=== PATIENT | male | born 1995 | race Caucasian/White ===

== ENCOUNTER 2016-12-23 19:26 | Emergency (ER) | payer SELFPAY ==
[2016-12-23 20:34] VITALS: BP 140/69
--- NOTE | 2016-12-23 20:43 | ED ---
Throat Pain/Nasal Congestion - History of Current Complaint Chief Complaint: UCUpperExtremity - Allergies/Home Medications Allergies/Adverse Reactions: Allergies Allergy/AdvReac Type Severity Reaction Status Date / Time Amoxicillin [From Augmentin] AdvReac Mild Rash Verified 12/23/16 20:35 Clavulanic Acid AdvReac Mild Rash Verified 12/23/16 20:35 [From Augmentin] Home Medications: Home Medications Amphetamine-Dextroamphetamine [Adderall XR 30 mg-] 12/23/16 [History] Melatonin 12/23/16 [History Confirmed 12/23/16] traZODone TAB* [Desyrel TAB*] 12/23/16 [History] PMH/Surg Hx/FS Hx/Imm Hx Endocrine/Hematology History: Denies: Hx Diabetes, Hx Thyroid Disease Cardiovascular History: Denies: Hx Congestive Heart Failure, Hx Hypertension Respiratory History: Reports: Hx Asthma - POSSIBLY Denies: Hx Chronic Obstructive Pulmonary Disease (COPD) GI History: Denies: Hx Ulcer History: Denies: Hx Renal Disease Infectious Disease History: No Infectious Disease History: Denies: Hx Hepatitis, Hx Human Immunodeficiency Virus (HIV), Traveled Outside the [place] in Last 30 Days - Social History Alcohol Use: None Substance Use Type: Reports: None Smoking Status (MU): Never Smoked Tobacco Physical Exam Vital Signs On Initial Exam: Initial Vitals Temp Pulse Resp BP Pulse Ox 98.1 F 60 12 140/69 100 12/23/16 20:32 12/23/16 20:32 12/23/16 20:32 12/23/16 20:32 12/23/16 20:32 Diagnostics - Vital Signs Vital Signs Temp Pulse Resp BP Pulse Ox 12/23/16 20:32 98.1 F 60 12 140/69 100 - Laboratory Lab Statement: Any lab studies that have been ordered have been reviewed, and results considered in the medical decision making process.
--- NOTE | 2016-12-23 21:47 | RAD ---
Indication: Left fifth finger injury. 3 views of the left fifth digit demonstrates no fracture. No other bone or joint abnormality is noted. There is flexion deformity at the proximal interphalangeal joint. IMPRESSION: Flexion deformity proximal interphalangeal joint without evidence of fracture.
--- NOTE | 2016-12-23 22:03 | UC ---
Hand/Wrist HPI - HPI Summary HPI Summary: The patient comes in today for: 1. Left little finger injury: Onset: one month ago. Palliative/provocative: Pressure, touch makes it worse. Quality: Ache Region: PIP joint of the little finger of the left hand. Severity: 8/10 Associated symptoms: Event: While playing volleyball, the ball was going through the air when it struck the left little finger. He did not see anyone for this. For the first week it hurt, and he was not able to bend it. Over the 2nd and 3rd week, he was able to bend it more. The pain got better. The swelling was still present. Today awhile walking out of class, his hand struck a door causing the pain to increase. Medications: Aspirin-- he has taken 650 mg once a week. * - History Of Current Complaint Chief Complaint: UCUpperExtremity Stated Complaint: FINGER COMPLAINT Time Seen by Provider: 12/23/16 21:28 Hx Obtained From: Patient - Allergies/Home Medications Allergies/Adverse Reactions: Allergies Allergy/AdvReac Type Severity Reaction Status Date / Time Amoxicillin [From Augmentin] AdvReac Mild Rash Verified 12/23/16 20:35 Clavulanic Acid AdvReac Mild Rash Verified 12/23/16 20:35 [From Augmentin] Home Medications: Home Medications Amphetamine-Dextroamphetamine [Adderall XR 30 mg-] 12/23/16 [History] Melatonin 12/23/16 [History Confirmed 12/23/16] traZODone TAB* [Desyrel TAB*] 12/23/16 [History] PMH/Surg Hx/FS Hx/Imm Hx Previously Healthy: No - ADHD, insomnia. Endocrine History Of: Denies: Diabetes, Thyroid Disease, Hyperthyroidism, Hypothyroidism, Dyslipidemia Cardiovascular History Of: Denies: Cardiac Disorders, Hypertension, Pacemaker/ICD, Myocardial Infarction , Congestive Heart Failure, Atrial Fibrillation, Deep Vein Thrombosis, Bleeding Disorders Respiratory History Of: Denies: COPD, Asthma, Bronchitis, Pneumonia, Pulmonary Embolism GI/ History Of: Denies: Gastroesophageal Reflux, Ulcer, Gastrointestinal Bleed, Gall Bladder Disease, Kidney Stones, Diverticulitis, Renal Disease, Urosepsis Neurological History Of: Denies: TIA, CVA, Dementia, Seizures, Migraine Psychological History Of: Denies: Anxiety, Depression, Bipolar Disorder, Schizophrenia, Post Traumatic Stress Disorder Cancer History Of: Denies: Lung Cancer, Colorectal Cancer, Breast Cancer, Prostate Cancer, Cervical Cancer Other History Of: Negative For: HIV, Hepatitis B, Hepatitis C, Anticoagulant Therapy - Surgical History Surgical History: None - Family History Known Family History: Positive: Cardiac Disease, Hypertension - Social History Occupation: Employed Part-time, Student Alcohol Use: None Substance Use Type: None Smoking Status (MU): Never Smoked Tobacco - Immunization History Vaccination Up to Date: Yes Review of Systems Constitutional: Negative Skin: Negative Eyes: Negative ENT: Negative Respiratory: Negative Cardiovascular: Negative Gastrointestinal: Negative Genitourinary: Negative Musculoskeletal: Arthralgia All Other Systems Reviewed And Are Negative: Yes Physical Exam Triage Information Reviewed: Yes Appearance: Well-Appearing, No Pain Distress, Well-Nourished Vital Signs: Initial Vital Signs Temp 98.1 F 12/23/16 20:32 Pulse 60 12/23/16 20:32 Resp 12 12/23/16 20:32 BP 140/69 12/23/16 20:32 Pulse Ox 100 12/23/16 20:32 Vital Signs Reviewed: Yes Eyes: Positive: Conjunctiva Clear. Negative: Discharge ENT: Positive: Hearing grossly normal. Negative: Pharyngeal erythema, Nasal congestion, Nasal drainage, TM bulging, TM dull, TM red, Tonsillar swelling, Tonsillar exudate Dental: Negative: Gross Decay/Caries @, Dental Fracture @ Neck: Positive: Supple, Nontender, No Lymphadenopathy. Negative: Nuchal Rigidity Respiratory: Positive: Chest non-tender, Lungs clear, No respiratory distress, No accessory muscle use. Negative: Crackles, Wheezing Cardiovascular: Positive: RRR, No Murmur Abdomen Description: Positive: Nontender, No Organomegaly, Soft. Negative: Distended, Guarding Musculoskeletal: Positive: Other: - Left little finger. There is a flexion deformity of the PIP joint. There is bluish discoloration. He is able to flex the distal phalanx and the middle phalanx. There is good color of the finger tip. He has able to extend the finger. NVI. Neurological: Positive: Alert, Muscle Tone Normal Psychological: Positive: Age Appropriate Behavior, Consolable Skin: Negative: rashes, breakdown Diagnostics - Radiology No standard instances Xray Interpretation: No Acute Changes Radiology Interpretation Completed By: Radiologist - There is no dislocation or fracture, but a flexion deformity. Hand/Wrist Course/Dx - Differential Dx/Diagnosis Differential Diagnosis/HQI/PQRI: Sprain, Strain Provider Diagnoses: Left little finger injury/swelling. Discharge - Discharge Plan Condition: Stable Disposition: HOME Patient Education Materials: Finger Sprain (ED) Forms: *Work Release Referrals: Thiago Cristobal MD [Primary Care Provider] - Selvin Faustin MD [Medical Doctor] - As Soon As Possible (Please contact Dr. Faustin office as soon as you can for an appointment.) Liz Louise MD [Medical Doctor] - As Soon As Possible (Please call Dr. Louise's office as soon as you can for an appointment.) Additional Instructions: Please keep the finger in its donal splint until you see the hand surgeon--Dr. Faustin or Dr. Louise. Take [id number] medication as needed for pain.
== END 2016-12-23 22:19 | disposition home or self-care (01) ==
LOC: UCEAST 19:26
DX: S69.92XA Unspecified injury of left wrist, hand and finger(s), initial encounter (principal); W21.06XA Struck by volleyball, initial encounter; Y93.68 Activity, volleyball (beach) (court); Y92.39 Other specified sports and athletic area as the place of occurrence of the external cause; F90.9 Attention-deficit hyperactivity disorder, unspecified type; G47.00 Insomnia, unspecified; Z88.1 Allergy status to other antibiotic agents
CPT/HCPCS: 73140; 99211; G0463